=== PATIENT | female | born 1995 | race American Indian/Alaskan Native ===

== ENCOUNTER 2018-03-20 09:20 | Emergency (ER) | payer MEDICAID, OTHER ==
[2018-03-20 10:13] VITALS: BP 135/84
[2018-03-20] MEDS ORDERED: MOTRIN PO ONE (13:26)
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
== END 2018-03-20 15:00 | disposition left against medical advice (07) ==
LOC: ED 09:20
DX: M54.2 Cervicalgia (principal); R51 Headache; V49.59XA Passenger injured in collision with other motor vehicles in traffic accident, initial encounter; Y93.89 Activity, other specified; Y92.89 Other specified places as the place of occurrence of the external cause; Y99.8 Other external cause status
CPT/HCPCS: 99282